=== PATIENT | female | born 1955 | race Caucasian/White ===

== ENCOUNTER 2023-06-21 08:25 | Day surgery (SDC) | payer OTHER, SELFPAY ==
[2023-06-21 08:54] VITALS: BP 135/79; PULSE 68; RESP 16; TEMP 36.2; O2SAT 98; BMI 31.6
[2023-06-21] MEDS: LACTATED RINGERS 1,000 ML 150 ML IV (08:59)
--- NOTE | 2023-06-21 09:15 | PM.HP.1 ---
History of Present Illness History of Present Illness Date Patient Seen: 06/21/23 Chief complaint: SDC Narrative: Cologuard positive PFSH Medical History (Updated 06/21/23 @ 09:11 by Ada Lagos, RN) Afib Glucose intolerance Hypothyroid Surgical History (Updated 06/21/23 @ 09:15 by Ada Lagos RN) H/O hysterectomy for benign disease History of cardiac radiofrequency ablation History of tonsillectomy Status post shoulder surgery Total knee replacement status Social History household members: spouse Smoking Status: Never smoker Meds Home Medications and Allergies Home Medications Medication Instructions Recorded Confirmed Type azelastine 137 mcg (0.1 %) nasal 2 spray intranasal BID 06/21/23 06/21/23 History spray aerosol estradiol 0.5 mg tablet 0.5 mg PO DAILY 06/21/23 06/21/23 History metoprolol succinate 25 mg 25 mg PO DAILY 06/21/23 06/21/23 History tablet,extended release 24 hr rivaroxaban 20 mg tablet (Xarelto) 20 mg PO DAILY 06/21/23 06/21/23 History thyroid (pork) 60 mg tablet 60 mg PO DAILY 06/21/23 06/21/23 History ([place] Thyroid) Allergies Allergy/AdvReac Type Severity Reaction Status Date / Time codeine AdvReac Verified 06/21/23 08:51 erythromycin base AdvReac Nausea Verified 06/21/23 08:51 morphine AdvReac Nausea Verified 06/21/23 08:51 Exam Vital Signs (past 8 hours): - 06/21/23 08:54 Temperature 97.1 F L Pulse Rate 68 Respiratory Rate 16 Blood Pressure 135/79 Pulse Oximetry 98 Oxygen Delivery Method Room Air Oxygen Delivery Method Room Air Narrative Exam Narrative: Oropharynx free of lesions Chest clear to auscultation percussion Cardiac exam reveals no S3 or murmur Assessment & Plan Assessment & Plan narrative: Cologuard positivity need for colonoscopy. History of atrial fibrillation status post ablation with no AFib detected since. On Xarelto but off for the last 2 days Risks benefits and alternatives been explained.
--- NOTE | 2023-06-21 09:17 | PM.OP.COLON ---
Operative Date/Time/Diagnoses Date of procedure: 06/21/23 Pre-op diagnosis: See indication and findings Procedure & Clinicians Study performed: Colonoscopy Indications: Cologuard positive Surgeon: Vijay Langston Procedure Notes Procedure in detail: After informed consent was obtained the patient was placed in left lateral decubitus position. The video colonoscope was introduced the rectum slowly advanced cecum. On slow withdrawal mucosa was carefully examined. The scope was removed. The patient tolerated the procedure well. Blood loss none Complications none Sedation mac Findings 1. Moderate sigmoid diverticulosis 2. Moderate internal hemorrhoids 3. Otherwise negative colonoscopy to cecum Patient did to the Cologuard testing within 2-3 weeks of having hemorrhoid surgery. This may be playing a role in positivity. She has no significant upper tract symptoms per se. Would merely consider checking CBC and if anemic consider upper endoscopy. Otherwise follow-up colonoscopy in 5-10 years.
[2023-06-21 10:28] VITALS: BP 115/94; PULSE 66; RESP 14; TEMP 36.1; O2SAT 99
[2023-06-21 10:33] VITALS: BP 129/73; PULSE 63; RESP 15; O2SAT 98
[2023-06-21 10:38] VITALS: BP 135/80; PULSE 63; RESP 15; O2SAT 98
[2023-06-21 10:42] VITALS: BP 139/75; PULSE 62; RESP 16; TEMP 36.7; O2SAT 100
== END 2023-06-21 10:50 | disposition home or self-care (01) ==
PROVIDERS: Referring Provider Internal Medicine Gastroenterology; Visit Provider Internal Medicine Gastroenterology
PROC: 0DJD8ZZ Inspection of Lower Intestinal Tract, Via Natural or Artificial Opening Endoscopic (ICD-10-PCS; CPT 45378; principal; 2023-06-21 09:30)
DX: Z12.11 Encounter for screening for malignant neoplasm of colon (principal); R19.5 Other fecal abnormalities; K57.30 Diverticulosis of large intestine without perforation or abscess without bleeding; K64.8 Other hemorrhoids
CPT/HCPCS: G0121; J2704

== ENCOUNTER → 2023-08-31 | Outpatient (CLI) | payer OTHER, SELFPAY ==
--- NOTE | 2023-08-31 12:32 | DI.RAD.S_ITS ---
Bone Density Report Name: LAVON GOODWIN Age: 68 Sex: Female Ethnicity: White Date of : 1955 Indication: postmenopausal; screening for osteoporosis; Referring Provider: JIN HAGAN Study: Bone densitometry was performed. Exam Date: August 31, 2023 Accession number: [id number] Bone Density: Region BMD T-score Z-score Classification Femoral Neck (Left) 0.773 -0.7 1.1 Normal Total Hip (Left) 0.902 -0.3 1.2 Normal Femoral Neck (Right) 0.685 -1.5 0.3 Osteopenia Total Hip (Right) 0.851 -0.7 0.8 Normal Total Hip Mean 0.876 -0.5 1.0 Normal Total Forearm (Left) 0.628 0.9 2.9 Normal 1/3 Forearm (Left) 0.746 0.9 3.0 Normal UD Forearm (Left) 0.506 1.1 2.6 Normal World Health Organization criteria for BMD impression classify patients as: Normal (T-score at or above -1.0), Osteopenia (T-score between -1.0 and -2.5), or Osteoporosis (T-score at or below -2.5). 10-year Fracture Risk(1): Major Osteoporotic Fracture 9.4% Hip Fracture 1.3% Reported Risk Factors: [place] (), Neck BMD=0.685, BMI=30.4 (1) FRAX(R) Version 3.08. Fracture probability calculated for an untreated patient. Fracture probability may be lower if the patient has received treatment. Impression: The patient has low bone mass, based on the Right Femoral Neck T-score. The patient has an estimated ten-year risk of hip fracture of 1.3% and an estimated ten-year risk of major fracture of 9.4%, based on the WHO FRAX algorithm. Discussion: BONE DENSITY IS LOW AT ONE OR MORE SKELETAL SITES. This patient's lowest T-score is low at one or more skeletal sites. It meets the World Health Organization's (WHO) criteria for low bone mass (T-score between -1.0 and -2.5). The patient's 10-year risk of fracture as calculated by FRAX is less than the threshold where pharmacological therapy is recommended by the National Osteoporosis Foundation (NOF). However, all treatment decisions require clinical judgment and consideration of individual patient factors, including patient preferences, comorbidities, previous drug use, risk factors not captured in the FRAX model (e.g., frailty, falls, vitamin D deficiency, increased bone turnover, interval significant decline in bone density) and possible under or overestimation of fracture risk by FRAX. The patient should follow a healthful lifestyle (good nutrition with adequate calcium and vitamin D, and appropriate weight-bearing exercise). Follow-Up: Consider repeating this study in 2 to 3 years to reassess this patient's status, or sooner if there is some new clinical indication. Reported by: OCTAVIO ORTIZ M.D. on 08/31/2023 12:59:00 PM.
--- NOTE | 2023-08-31 12:32 | DI.MG.S_ITS ---
BILATERAL DIGITAL SCREENING MAMMOGRAM 3D/2D WITH CAD: 08/31/2023 CLINICAL: Routine screening. Comparison is made to exams dated: 10/29/2021 mammogram and 07/02/2020 mammogram - outside facility. There are scattered areas of fibroglandular density in both breasts (category b / 25%-50% glandular tissue). Current study was also evaluated with a Computer Aided Detection (CAD) system. No significant masses, calcifications, or other findings are seen in either breast. There has been no significant interval change. IMPRESSION: NEGATIVE There is no mammographic evidence of malignancy. A 1 year screening mammogram is recommended. Based on the Tyrer Cuzick model (a risk assessment model) the patient's lifetime risk is 4.8% and her 10 year risk is 3.1%. According to the ACR, ACS, and NCCN guidelines, an annual breast MRI exam along with mammogram is recommended if the patient's lifetime risk is 20% or greater. This exam was interpreted at Station ID: [id number]. NOTE: For mammograms, a report in lay terms will be sent to the patient. Approximately 15% of breast malignancies will not be visualized mammographically. In the management of a palpable breast mass, a negative mammogram must not discourage biopsy of a clinically suspicious lesion. Electronically Signed By: Maged pimentel/scarlett:08/31/2023 13:49:35 letter sent: Normal Exam ACR BI-RADS Category 1: Negative [id number]
== END ==
LOC: RAD 12:32
PROVIDERS: PCP Registered Nurse; Referring Provider Registered Nurse; Visit Provider Registered Nurse
DX: Z12.31 Encounter for screening mammogram for malignant neoplasm of breast (principal); M85.851 Other specified disorders of bone density and structure, right thigh; Z13.820 Encounter for screening for osteoporosis; Z78.0 Asymptomatic menopausal state; Z90.710 Acquired absence of both cervix and uterus; Z92.23 Personal history of estrogen therapy
CPT/HCPCS: 77063; 77067; 77080; 77081

== ENCOUNTER → 2023-10-03 14:45 | Outpatient (CLI) | payer OTHER, SELFPAY ==
--- NOTE | 2023-10-03 14:47 | DI.RAD.S_ITS ---
PROCEDURE: XR CHEST 2V INDICATIONS: BRONCHITIS TECHNIQUE: 2 views of the chest were acquired. COMPARISON: None. FINDINGS: Surgical changes and devices: Leadless pacemaker. Lungs and pleura: Lungs are clear. No pleural effusions or pneumothorax. Mediastinum: Mediastinal contours are normal. Heart size is normal. Bones and chest wall: No suspicious bony abnormalities. Soft tissues appear unremarkable. IMPRESSION: No acute cardiopulmonary abnormality is seen. Dictated by: Jack Pressley M.D. on 10/03/2023 at 17:03 Approved by: Jack Pressley M.D. on 10/03/2023 at 17:03
[2023-10-03 15:54] LABS: Influenza A - CEPHEID Flu A NEGATIVE (NEGATIVE); Influenza B - CEPHEID Flu B NEGATIVE (NEGATIVE); Respiratory Syncytial Virus POSITIVE (Negative)
[2023-10-03 16:00] LABS: COVID-19 CEPHEID 4-PLEX PCR Negative (Negative)
== END ==
LOC: RAD 14:46
PROVIDERS: PCP Registered Nurse; Referring Provider Registered Nurse; Visit Provider Registered Nurse
DX: R05.1 Acute cough (principal); J40 Bronchitis, not specified as acute or chronic
CPT/HCPCS: 0241U; 71046

== ENCOUNTER → 2024-01-22 09:18 | Outpatient (CLI) | payer OTHER, SELFPAY ==
--- NOTE | 2024-01-22 09:18 | DI.ECHO.S_ITS ---
[facility]---------+ [facility] : : [address] : : [place] : : [id number] : : Phone: [phone] Echocardiogram Report + + :Name: LAVON GOODWIN Study Date: 01/22/2024 Height: 63.5 in: :[facility] ReadingLocation: Weight: 175 lb : : Gender: Female BSA: 1.8 m2 : :: 1955 Age: 68 yrs BP: 126/77 mmHg: :Reason For Study: ATRIAL FIBRILLATION : :Ordering Physician: Dave DE LA FUENTEformed By: Darcy Tomas : :Referring: BILLY DE LA FUENTE : + + Interpretation Summary Normal left ventricle size with ejection fraction 55-60%. Diastolic parameters suggest a relaxation abnormality of the left ventricle, consistent with probable normal filling pressures. Mild biatrial enlargement. Mild mitral regurgitation. Procedure: A two-dimensional transthoracic echocardiogram with color flow and Doppler was performed. The study quality was technically adequate. There is no prior echocardiogram noted for this patient. The patient was in sinus rhythm with heart rates between 60-76 bpm during the exam. Left Ventricle: The left ventricle is normal in size and wall thickness. The ejection fraction is estimated to be 55-60%. There are no focal wall motion abnormalities. Diastolic parameters suggest a relaxation abnormality of the left ventricle, consistent with probable normal filling pressures. Right Ventricle: The right ventricle is normal in size and function. Atria: There is mild biatrial enlargement. There is no Doppler evidence for an interatrial shunt. Mitral Valve: The mitral valve leaflets appear borderline thickened, but open well. There is mild mitral regurgitation. Aortic Valve: The aortic valve is trileaflet. The aortic valve opens well. There is no aortic valve stenosis. No aortic regurgitation is present. Tricuspid Valve: The tricuspid valve is normal in structure and function. There is trace tricuspid regurgitation. Pulmonary artery pressures cannot be estimated because of the lack of a measurable TR jet velocity. Pulmonic Valve: The pulmonic valve leaflets are thin and pliable; valve motion is normal. There is no pulmonic valvular regurgitation. Great Vessels: The aortic root is normal size. The dimensions of the ascending aorta are normal. The IVC is dilated (diameter is greater than 2.1 cm) yet it collapses greater than 50% with a sniff. This suggests a right atrial pressure of 8 mm Hg. Pericardium/ Pleura There is no pericardial effusion. There is no pleural effusion. MMode/2D Measurements & Calculations LVIDd: 4.5 cm LVOT diam: 2.0 cm LVIDs: 3.0 cm Ao root diam: 3.3 cm FS: 32.9 % asc Aorta Diam: 3.7 cm IVSd: 0.99 cm Ao Arch Diam (Prox Trans): 2.9 cm LVPWd: 1.1 cm LV darnell. diameter/BSA (cm/m^2): 2.5 LV sys. diameter/BSA (cm/m^2): 1.7 LA A2 area: 24.9 cm2 RA long axis: 5.9 cm LA A4 area: 22.5 cm2 RA area: 23.1 cm2 LA length (vol): 6.1 cm RA vol: 77.2 ml LA vol: 78.5 ml RA : 42.0 ml/m2 LA vol index: 42.7 ml/m2 IVC diam: 2.2 cm RVD1 (basal): 4.0 cm RVD2 (mid): 3.0 cm TAPSE: 2.2 cm Doppler Measurements & Calculations Ao V2 max: 153.2 cm/sec LVOT Max Nico: 100.6 cm/sec Ao V2 mean: 104.7 cm/sec LV V1 max P.0 mmHg Ao max P.4 mmHg LV V1 VTI: 23.6 cm Ao mean P.9 mmHg KINGSLEY(I,D): 2.1 cm2 Ao V2 VTI: 35.9 cm KINGSLEY(V,D): 2.1 cm2 sev ratio: 0.66 KINGSLEY indexed to BSA (cm^2/m^2): 1.2 MV E max nico: 82.7 cm/sec PA V2 max: 89.6 cm/sec MV A max nico: 81.1 cm/sec PA V2 mean: 63.2 cm/sec MV E/A: 1.0 PA mean P.8 mmHg Med Peak E' Nico: 5.8 cm/sec PA pr(Accel): 39.6 mmHg E/E' med: 14.4 Lat Peak E' Nico: 9.9 cm/sec E/E' lat: 8.4 E/e' average: 11.4 MV dec time: 0.24 sec SV(LVOT): 75.9 ml Electronically signed by: Kian Lim on Reading Physician:01/22/2024 02:12 PM
== END ==
LOC: ECHO 09:18
PROVIDERS: PCP Registered Nurse; Referring Provider Internal Medicine Cardiovascular Disease; Visit Provider Internal Medicine Cardiovascular Disease
DX: I48.91 Unspecified atrial fibrillation (principal); I34.0 Nonrheumatic mitral (valve) insufficiency
CPT/HCPCS: 93306

== ENCOUNTER → 2025-01-27 16:42 | Outpatient (CLI) | payer OTHER, SELFPAY ==
--- NOTE | 2025-01-27 16:44 | DI.MG.S_ITS ---
MM screening mammo BI: 01/27/2025. BI-RADS: 2 CLINICAL: 69-year old female for bilateral screening mammogram. Tyrer-Cuzick lifetime risk of 4.6%. No personal or first-degree family history of breast cancer. The patient had prior bilateral breast biopsies. PRIOR EXAMS 08/31/2023. MAMMOGRAPHY TECHNIQUE: 2D and 3D (tomosynthesis) digital mammographic views obtained, with additional images as needed for full coverage. Current study was also evaluated with a Computer Aided Detection (CAD) system. DENSITY B. There are scattered areas of fibroglandular density. MAMMOGRAPHY FINDINGS Right: Benign-appearing calcification noted on the right. There are no suspicious masses, calcifications, or other findings in the breast. No significant change from comparison. Left: Biopsy marker present on the left. Benign-appearing calcification and post-surgical changes noted on the left. There are no suspicious masses, calcifications, or other findings in the breast. No significant change from comparison. IMPRESSION: * No evidence of malignancy with benign findings. RECOMMENDATIONS Bilateral * Annual screening mammography. OVERALL ASSESSMENT CATEGORY BI-RADS-2: Benign. The [employer] recommends annual screening mammography beginning at age 40 for women with average risk of breast cancer. ELECTRONICALLY SIGNED: Jackeline Abdullahi M.D. on 01/28/2025 at 04:41:26 PM PT Interpreting Station ID: [id number]
== END ==
PROVIDERS: PCP Registered Nurse; Referring Provider Registered Nurse; Visit Provider Registered Nurse
DX: Z12.31 Encounter for screening mammogram for malignant neoplasm of breast (principal)
CPT/HCPCS: 77063; 77067